=== PATIENT | female | born 2000 | race Two or more races ===

== ENCOUNTER 2020-07-14 12:14 | Outpatient (RCR) | payer OTHER, SELFPAY | END 2020-09-28 23:59 | disposition home or self-care (01) | LOC: ANHLAB 12:14 | PROVIDERS: Visit Provider Obstetrics & Gynecology | DX: O20.0 Threatened abortion (principal); Z3A.00 Weeks of gestation of pregnancy not specified | CPT/HCPCS: 36415; 84702 ==

== ENCOUNTER 2022-08-16 22:28 | Emergency (ER) | payer OTHER, SELFPAY ==
[2022-08-16 22:28] VITALS: BP 107/67; PULSE 102; RESP 17; TEMP 36.5; O2SAT 99
[2022-08-16 22:43] VITALS: O2SAT 100
--- NOTE | 2022-08-16 22:57 | ECG_ITS ---
Measurements Intervals [place] Rate: 92 P: 45 SD: 170 QRS: 30 QRSD: 86 T: 46 QT: 343 QTc: 425 Interpretive Statements SINUS RHYTHM BASELINE ARTIFACT- V6 NORMAL ECG NO PREVIOUS ECG AVAILABLE FOR COMPARISON Electronically Signed On 08-17-2022 6:37:20 CDT by Talat Rankin D.O.
[2022-08-16 23:01] VITALS: BP 109/75; PULSE 109; RESP 27
--- NOTE | 2022-08-16 23:01 | ED.GENADULT ---
HPI - General Adult General Chief complaint: Seizure Stated complaint: Syncope Time Seen by Provider: 08/16/22 22:43 History of Present Illness HPI narrative: This is a 22-year-old presenting at 17 weeks gestation presenting after brief loss of consciousness. the patient was out watching fireworks with her boyfriend when she started to have some chest heaviness and shortness of breath. She then closed her eyes and briefly lost consciousness. Her boyfriend caught her and lowered her to the ground. When she was on the ground she regained consciousness without tongue biting urinary incontinence. She then quickly returned to her baseline and has no complaints at this time. She has been out in the sun throughout most of the day. She denies chest pain difficulty breathing abdominal pain vaginal discharge or irritation or bleeding or urinary symptoms. There was some concern that the patient may have had a seizure because she had seizures when she was 2 to approximately 5 years old. She has not had a seizure in many years. Related Data Allergies Allergy/AdvReac Type Severity Reaction Status Date / Time No Known Allergies Allergy Verified 08/16/22 22:44 Exam Narrative: APPEARANCE: No apparent distress. well-appearing Head: atraumatic. EYES: EOMI, NOSE: Atraumatic NECK: Trachea midline RESPIRATORY: No increased rate of breathing, clear to auscultation CARDIOVASCULAR: tachycardic, no peripheral edema ABDOMINAL: Non-distended, soft nontender no guarding or rebound MUSCULOSKELETAl: No obvious deformities NEURO: Alert. Cranial nerves 2-12 grossly intact. Sensation light touch, motor function cerebellar function intact for 4 extremities. Gait exam was normal. SKIN:: Warm, dry. Normal color PSYCHIATRIC: Normal affect Course Vital Signs Vital signs: Vital Signs Temperature 97.7 F 08/16/22 22:28 Pulse Rate 102 H 08/16/22 22:28 Respiratory Rate 17 08/16/22 22:28 Blood Pressure 107/67 08/16/22 22:28 Pulse Oximetry 99 08/16/22 22:28 Temperature 97.7 F 08/16/22 22:28 Pulse Rate 102 H 08/16/22 22:28 Respiratory Rate 17 08/16/22 22:28 Blood Pressure 107/67 08/16/22 22:28 Pulse Oximetry 100 08/16/22 22:43 Oxygen Delivery Room Air 08/16/22 22:43 Medical Decision Making [facility] Narrative Medical decision making narrative: -Presentation: 22-year-old female presenting with brief loss of consciousness and . patient does not have any OBGYN complaints at this time. -DDX includes but is not limited to: Syncope, seizure, dehydration -Co-morbidities complicating care: , remote history of seizures -Social determinants of health: unemployed, lives with her mother -External Chart Review: none -Hx from independent Sources: mother touch at bedside, boyfriend a thin a bedside -Independent interpretation of studies: Independent EKG interpretation: Rhythm [sinus], Rate [92], [place] -[normal], MD -[normal], QRS [narrow], QTC [normal], T waves -[negative for concerning inversions], ST Segments - [Negative for concerning elevations] Final interpretations: [Normal Sinus Rhythm] CBC showed a slight increase in white count. Metabolic panel showed hypokalemia which is repleted orally. Urine indicative of infection. Although she is asymptomatic she is so we will treat. -Discussion of Management/Consultants: none -Dx tests considered but not ordered: none -Procedures: none -Interventions: 2L normal saline 40 mEq potassium, Keflex 500 mg -Shared decision making / Disposition: patient's presentation is consistent with benign syncope. Patient will be discharged with OB followup care follow-up. -RX Keflex 500 mg b.i.d. x5 days Vital Signs Vital Signs: Vital Signs Temperature 97.7 F 08/16/22 22:28 Pulse Rate 102 H 08/16/22 22:28 Respiratory Rate 17 08/16/22 22:28 Blood Pressure 107/67 08/16/22 22:28 Pulse Oximetry 99 08/16/22 22:28
[2022-08-16 23:20] LABS: Basophils Percent Auto 0.2 % (0.2-1.2); Eosinophils Absolute Auto 0.1 K/mm3 (0-0.3); Eosinophils Percent Auto 0.8 % (0-4.4); Hematocrit 38.4 % (37.0-47.0); Hemoglobin 13.3 g/dL (12.0-15.0); Immature Granulocyte Absolute 0.02 K/mm3 (0.00-0.031); Immature Granulocyte Percent A 0.2 % (0-0.5); Lymphocytes Absolute Auto 1.99 K/mm3 (0.9-3.2); Lymphocytes Percent Auto 16.4 % (18.3-44.2); Mean Corpuscular HGB Conc 34.6 g/dl (32-36); Mean Corpuscular Hemoglobin 30.6 pg (26-34); Mean Corpuscular Volume 88.3 fl (80-100); Mean Platelet Volume 9.8 fl (7.4-10.4); Monocytes Absolute Auto 0.5 K/mm3 (0.1-0.6); Monocytes Percent Auto 4.4 % (2.6-8.5); Neutrophils Absolute Auto 9.5 K/mm3 (1.3-6.7); Platelet Count Result 210 k/mm3 (150-375); Red Blood Count 4.35 M/mm3 (4.2-5.4); Red Cell Distribution Width 12.7 % (11.5-14.5); White Blood Count 12.1 K/mm3 (4.5-10.0)
[2022-08-16] MEDS: SODIUM CHLORIDE 0.9% IV 2,000 ML 999 ML IV CONT (23:23)
[2022-08-16 23:29] LABS: Alanine Aminotransferase 25 U/L (6-35); Albumin Level 3.8 g/dL (3.5-5.1); Alkaline Phosphatase 34 U/L (38-126); Anion Gap 6 mmol/L (8-16); Aspartate Amino Transferase 20 U/L (14-36); Bilirubin,Total 0.3 mg/dL (0.2-1.3); Blood Urea Nitrogen 5 mg/dL (7-17); Carbon Dioxide 24 mmol/L (22-30); Chloride 104 mmol/L (98-107); Estimated CRCL calculation 146 ml/min; Estimated Glomerular Filt Rate > 60; Glucose 112 mg/dL (65-110); Potassium 3.2 mmol/L (3.4-5.0); Sodium 134 mmol/L (137-145)
[2022-08-16 23:36] LABS: Appearance Urine Clear (Clear); Bilirubin Urine Negative (Negative); Blood Urine Negative (Negative); Color Urine Yellow (Yellow); Glucose Urine UA Negative (Negative); Ketones Urine Negative (Negative); Leukocyte Esterase Ur Trace LEU/UL (Negative); Nitrate Urine Negative (Negative); Protein Urine 1+ mg/dL (Negative); Urobilinogen Urine 0.2 mg/dL (<2.0); pH Urine 6.5 (5.0-9.0)
[2022-08-16 23:39] LABS: Bacteria Urine None Seen /hpf; Non Pathogenic Casts 0-2; RBC Urine 0-2 /hpf (0-2); Squamous Epithelial Cell Urine Few /hpf (Few)
[2022-08-16 23:41] LABS: Add Urine Microscopic? YES
[2022-08-16] MEDS: POTASSIUM CHLORIDE 20 MEQ PACKET (FOR LIQUID) 40 MEQ PO (23:58)
[2022-08-16] MEDS: CEPHALEXIN 500 MG CAPSULE PO (23:59)
[2022-08-17 00:35] VITALS: BP 109/75; PULSE 108; RESP 26; O2SAT 100
== END 2022-08-17 00:37 | disposition home or self-care (01) ==
PROVIDERS: Emergency Provider Emergency Medicine
DX: O26.892 Other specified pregnancy related conditions, second trimester (principal); R55 Syncope and collapse; Z3A.17 17 weeks gestation of pregnancy
CPT/HCPCS: 36415; 80053; 81001; 85025; 87086; 87088; 93005; 96360; 99283; A9270; J7030

== ENCOUNTER 2023-01-16 07:12 | Inpatient (IN) | payer OTHER, SELFPAY ==
[2023-01-16] VITALS (11 sets, daily range): BP systolic 123–172; BP diastolic 82–111; PULSE 71–93; RESP 16; TEMP 36.6–36.8; O2SAT 100; BMI 32.0
--- NOTE | 2023-01-16 07:48 | LDADM ---
This patient, Shira Neumann, was admitted to Labor/Delivery/Recovery 105 on 01/16/23 at 07:12. Plans for labor, pain management and were discussed with patient. Patient/family oriented to hospital policies and general routines including ID bracelet, bed and alarms, visiting hours, pain management, procedures, bathroom and other care routines, personal items, smoking policy, room service/diet and guest tray routines, security routines, and visiting hours. Patient/Family are encouraged to report perceived risks to care and to ask questions if they do not understand what they are told or what they should do. See OBIX for further documentation.
[2023-01-16 08:16] LABS: Basophils Absolute Auto 0.1 K/mm3 (0.0-0.1); Basophils Percent Auto 0.5 % (0.2-1.2); Eosinophils Absolute Auto 0.1 K/mm3 (0-0.3); Eosinophils Percent Auto 0.7 % (0-4.4); Hematocrit 37.4 % (37.0-47.0); Immature Granulocyte Absolute 0.04 K/mm3 (0.00-0.031); Immature Granulocyte Percent A 0.3 % (0-0.5); Lymphocytes Absolute Auto 3.08 K/mm3 (0.9-3.2); Lymphocytes Percent Auto 25.1 % (18.3-44.2); Mean Corpuscular HGB Conc 32.1 g/dl (32-36); Mean Corpuscular Hemoglobin 28.5 pg (26-34); Mean Corpuscular Volume 88.8 fl (80-100); Mean Platelet Volume 11.2 fl (7.4-10.4); Monocytes Absolute Auto 0.7 K/mm3 (0.1-0.6); Monocytes Percent Auto 5.3 % (2.6-8.5); Neutrophils Absolute Auto 8.4 K/mm3 (1.3-6.7); Neutrophils Percent Auto 68.1 % (45.5-73.1); Platelet Count Result 224 k/mm3 (150-375); Red Blood Count 4.21 M/mm3 (4.2-5.4); Red Cell Distribution Width 15.1 % (11.5-14.5); White Blood Count 12.3 K/mm3 (4.5-10.0)
[2023-01-16 08:31] LABS: Alanine Aminotransferase 49 U/L (6-35); Albumin Level 3.8 g/dL (3.5-5.1); Alkaline Phosphatase 315 U/L (38-126); Anion Gap 9 mmol/L (8-16); Aspartate Amino Transferase 35 U/L (14-36); Bilirubin,Total 0.6 mg/dL (0.2-1.3); Blood Urea Nitrogen 5 mg/dL (7-17); Calcium 8.7 mg/dL (8.4-10.2); Carbon Dioxide 24 mmol/L (22-30); Chloride 104 mmol/L (98-107); Estimated CRCL calculation 127 ml/min; Estimated Glomerular Filt Rate > 60; Glucose 102 mg/dL (65-110); Potassium 3.4 mmol/L (3.4-5.0); Sodium 137 mmol/L (137-145); Uric Acid 5.3 mg/dL (2.5-7.5)
--- NOTE | 2023-01-16 09:03 | P.PCNOB_ITS ---
OB - Vaginal Delivery Note Procedure Delivery date: 01/16/23 Events: No Care Intrapartal Events: Other (Delivery in the ambulance) Induction method: None Delivery monitor: None Route of delivery: Episiotomy description: None Laceration Description: None Specimen: Yes Quantitative Blood Loss (ml): 150 Disposition: Floor Complications: No immediate complications Narrative: patient delivered in the ambulance, placenta was in the vagina, placenta was delivered in the hospital room. [place] Baby Weeks of gestation at delivery: 38
[2023-01-16 09:12] LABS: HIV 1/2 Ab P24 Ag Result Negative (Negative)
[2023-01-16 10:07] LABS: Barbiturate Screen Urine Negative (Negative); Benzodiazepines Screen Urine Negative (Negative)
[2023-01-16 10:11] LABS: Cannabinoid Screen Urine Negative (Negative); Cocaine Screen Urine Negative (Negative); Methadone Screen Urine Negative (Negative); Opiate Screen Urine Negative (Negative); Phencyclidine Screen Urine Negative (Negative)
[2023-01-16] MEDS: IBUPROFEN 600 MG TABLET PO ×2 (10:13→16:28)
--- NOTE | 2023-01-16 10:21 | PC.NURSE ---
Patient transferred to post room #279 via wheelchair. Support person present. Oriented to unit, room, information board, rooming in, admission packet and security measures. Patient verbalizes understanding.
[2023-01-16 12:55] LABS: Amphetamine Screen Urine Positive (Negative)
--- NOTE | 2023-01-16 14:00 | PC.NURSE ---
Pitocin IV fluids completed at 1400 (500 mls), pt's IV saline lock removed.
--- NOTE | 2023-01-16 15:03 | PCCCNOTE ---
Addendum entered by JONATHAN Sinclair 01/16/23 16:19: An investigation to be initiated by [facility]. An exhaust worker will be present to meet with pt. within 24 hours. Original Note: Referred for positive amphetamine result on urine drug screen for pt. and baby girl. Met with pt. and significant other/father of baby, Yovani Moulton at bedside. Pt. confirms marijuana use but denies any other drugs or alcohol during . She obtains marijuana socially. She denies use of any medications that could cause a false positive. She had limited care as states having lost her apartment in September and moved in with her mother; she states having transportation issues because of this. She states having [facility] case in the past which has been closed. She lives with her mother, her siblings and her 6 year old daughter. She planned to return home with family at discharge with baby girl. She states having all items to care for baby girl at home. She states significant other, his mother and her mother are all supportive. I've provided resources as well as all social determinants of health resources indicated. She accepted same. Encouraged she contact any/all of interest. I've reported all above to [facility]. Intake #[id number]. RN aware of above. Following.
[2023-01-16 16:17] LABS: Rapid Plasma Reagin Non-Reactive (NonReactive)
--- NOTE | 2023-01-16 17:00 | PC.NURSE ---
[address] [facility] Sr. Media Manager, Britney Allred, here to see patient and father of baby. Her phone number is #[phone], per DCFS, baby will not go home with the mother and she needs to be called when we know the day of discharge for the baby, she is working on finding placement. A copy of her ID was placed on the pt's and baby's chart. *Copy of this note placed in baby's chart.
[2023-01-17] MEDS: IBUPROFEN 600 MG TABLET PO ×3 (00:30→20:34)
[2023-01-17 04:59] LABS: Hematocrit 34.9 % (37.0-47.0); Hemoglobin 11.3 g/dL (12.0-15.0)
[2023-01-17 05:00] VITALS: BP 126/93; PULSE 89; RESP 16; TEMP 36.5; O2SAT 100
--- NOTE | 2023-01-17 07:29 | P.PNOB_ITS ---
OB - PN: Subj Subjective Date/time seen: 01/17/23 07:29 Patient comments: no complaints, pain well controlled, incisional pain, tolerating diet and flatus present OB - PN: Obj Data Labs 01/17/23 04:09 01/16/23 08:03 Labs: Laboratory Results - last 24 hr 01/16/23 01/16/23 01/17/23 08:03 09:24 04:09 WBC 12.3 H RBC 4.21 Hgb 12.0 11.3 L Hct 37.4 34.9 L MCV 88.8 MCH 28.5 MCHC 32.1 RDW 15.1 H Plt Count 224 MPV 11.2 H Immature Gran % (Auto) 0.3 Neut % (Auto) 68.1 Lymph % (Auto) 25.1 [place] % (Auto) 5.3 Eos % (Auto) 0.7 Baso % (Auto) 0.5 Lymph # (Auto) 3.08 [place] # (Auto) 0.7 H Eos # (Auto) 0.1 Baso # (Auto) 0.1 Abs Immat Gran (auto) 0.04 H Absolute Neuts (auto) 8.4 H Absolute Nucleated RBC 0.0 Nucleated RBC % 0.0 Sodium 137 Potassium 3.4 Chloride 104 Carbon Dioxide 24 Anion Gap 9 BUN 5 L Creatinine 0.60 L Estim Creat Clear Calc 127 Estimated GFR > 60 Glucose 102 Uric Acid 5.3 Calcium 8.7 Total Bilirubin 0.6 AST 35 ALT 49 H Alkaline Phosphatase 315 H Total Protein 8.0 Albumin 3.8 Urine Opiates Screen Negative Urine Methadone Screen Negative Ur Barbiturates Screen Negative Ur Phencyclidine Scrn Negative Ur Amphetamine Screen Positive A U Benzodiazepines Scrn Negative Urine Cocaine Screen Negative U Cannabinoids Screen Negative RPR Non-reactive HIV 1&2 Ab/P24 Ag 4thGn Negative Blood Type A Positive Antibody Screen Negative OB - PN A/P Plan day: 1 Plan: routine care Comments: No problems, routine care Time Spent With Patient Time: Total time spent is greater than 50% in coordination of care (as documented) at patient's floor/unit and/or counseling patient: Exam Const: General: comfortable, no acute distress and alert Resp: Effort & Inspection: normal respiratory effort Auscultation: no product craftsman ckles, no rales and no rhonchi Cardio: Rate: regular rate Heart sounds: no click, no murmurs and no rubs GI: Inspection: non-distended GI Palp: No Tenderness to palpation present (GI) Auscultation: normal bowel sounds Other: Incision - CDI Extrem: General: normal to inspection, no pedal edema and no calf tenderness
[2023-01-17 07:48] VITALS: BP 127/77; PULSE 78; RESP 22; TEMP 36.7; O2SAT 98
--- NOTE | 2023-01-17 14:24 | PCCCNOTE ---
DCFS present at hospital 01/16/23 and plan to take custody of baby girl per nursing note. Spoke with RNCheryle this morning and she is also aware. She states possible discharge or Monday pending any withdrawl symptoms. Spoke to DCFS workerPaula at [phone] to notify of anticipated discharge date and she confirms working on placement for baby girl. Following.
[2023-01-17 20:30] VITALS: BP 132/80; PULSE 80; RESP 20; TEMP 37
[2023-01-17] MEDS: ACETAMINOPHEN 325 MG TABLET 650 MG PO (20:32)
--- NOTE | 2023-01-17 23:20 | PC.NURSE ---
Patient sent infant to the nursery so that she could sleep. Inside the infants crib drawer was a urine collection cup with pills inside. There was also a vape device left on the infants crib. final inspection supervisor called and she instructed us to call security. The ict security specialist came to the floor and confiscated the vape and the cup of pills. The infant's framing specialist was notified and he has instructed us that is not to be in the patient's room unsupervised. DCFS and Care Coordination are already involved. The infant was taken to the first floor nursery for the night. The patient and her significant other came to the patient kitchen for snacks and did not ask about the . final inspection supervisor instructed us to have security come speak to them with the nurse when they ask to have baby back.
--- NOTE | 2023-01-18 07:47 | PM.OBPNVD ---
OB - PN: Subj Subjective Date/time seen: 01/18/23 07:47 Interval history: PP Day 2 delivery outside of hospital drugs found in baby's crib overnight by RN patient denies complaints OB - PN: Obj Data Labs 01/17/23 04:09 01/16/23 08:03 OB - PN A/P Plan day: 2 Plan: discharge home Comments: Patient was made aware of drugs found in baby's crib patient upset, clinical case manager notified Time Spent With Patient Time: Total time spent is greater than 50% in coordination of care (as documented) at patient's floor/unit and/or counseling patient: Review of Systems Review of Systems: All systems reviewed & are unremarkable except as noted in HPI and below Exam Const: General: healthy appearing, in distress and anxious Resp: Effort & Inspection: normal respiratory effort Cardio: Rate: regular rate GI: Other: soft Skin: General skin exam: normal color Neuro: General: patient oriented x3
--- NOTE | 2023-01-18 07:52 | P.DS_ITS ---
DS: Admitting Diagnosis Discharge Date 01/18/23 Admitting Diagnosis vaginal delivery out of hospital DS: Discharge Diagnosis Discharge Diagnosis (1) Encounter for care after unplanned out of hospital delivery: Code(s): Z39.2 - Encounter for routine follow-up Status: Acute OB - DS: Summary OB Procedures : Other (no care) OB Procedures Intrapartum: Spontaneous Vag Delivery OB Procedures: : None Peripartum Data Laceration Description: None Episiotomy description: None Time Spent with Patient Time attestation: Total time spent providing and/or coordinating discharge services: DS: Data Data Completed and Pending Pending studies at discharge: Pending at discharge 01/16/23 07:28 Surgical [PTH] Routine Discharge Plan Discharge Attending physician on discharge: Manjinder Sanchez Consulting providers: Tania Renteria Discharging Clinician: Tania Renteria Patient Disposition: Home, Self-Care Activity: as tolerated and pelvic rest Diet: regular Discharge Instructions: Education: Mom and Baby Guide Given to: Mother Follow-Up: Call your delivering provider's office for an appointment to be seen in: 4 Weeks BREAST CARE: * Wear a snug supportive bra. * For engorgement discomfort: Bottle Feeding: * May apply ice packs EPISIOTOMY/PERINEAL CARE: * Until bleeding stops, use your douglas bottle after urinating * Change your pad frequently throughout the day * You may take sitz baths several times a day (fill your bathtub with warm water and soak for 20 minutes.) Do NOT bathe in the water * No tub baths until seen by your physician - You may shower ACTIVITY: * Rest as much as possible. * Do not exercise or lift anything heavier than your baby (such as laundry or other children.) * Avoid stairs or driving as much as possible. * Do not put anything into the vagina. No douching, tampons, or sexual activity until seen by physician. NOTIFY PHYSICIAN IF YOU HAVE ANY QUESTIONS OR IF ANY OF THE FOLLOWING SYMPTOMS OCCUR: * If your vaginal bleeding becomes foul smelling. * If your vaginal bleeding becomes more heavy than a period or if your bleeding changes from pink to bright red. However, you may pass an occasional walnut- sized clot once or twice for the first week . * If you experience a sharp, shooting pain in you calves. DIET: * Eat regular, well-balanced meals. * Drink plenty of fluids daily. Stand Alone Forms: General Discharge Information Follow-up/Referrals: Manjinder Sanchez MD [Physician] - 4 Weeks Discharge Medications: Continued prenat.vits,amirah,[id number] Tablet PO DAILY Date of admission: 01/16/23 07:12 Primary Care Provider: UNKNOWN,DOCTOR Admitting Provider: Manjinder Sanchez Attending physician on admission: Manjinder Sanchez Condition: Stable
[2023-01-18] MEDS: ACETAMINOPHEN 325 MG TABLET 650 MG PO (08:04)
[2023-01-18] MEDS: IBUPROFEN 600 MG TABLET PO (08:05)
[2023-01-18 08:29] VITALS: BP 92/80; PULSE 98; RESP 18; TEMP 36.7; O2SAT 100
--- NOTE | 2023-01-18 08:44 | PC.NURSE ---
Addendum entered by Sandee Suárez RN 01/18/23 08:50: *Copy of this note placed in baby's chart. Original Note: 0750-Tania Renteria CNM, here to discharge mother. GRIS went to room to explain to mother why she is not allowed to have her baby in room at this time. Security and Legal Services Professional present outside of door. Mother states she did not know that her baby would not be going home with her. Legal Services Professional notified Care Coordination of situation and they will contact DCFS this AM for clarification to mother and pending placement of .
--- NOTE | 2023-01-18 13:10 | PC.NURSE ---
Patients mother called in regarding her daughter. States pt has gone to get car seat and is back to take baby home and her mother is asking why baby is not being discharged. Advised that we are unable to give patient information via phone, however baby is still an inpatient and has not been discharged by offset printer. Pt mom states she will be the one responsible for baby, per DCFS after discharge. Advised her to check with DCFS regarding discharge procedures planned for baby.
--- NOTE | 2023-01-18 14:53 | PC.NURSE ---
1055-DCFS fbi investigator, Britney Allred, here to see pt. duralumin metalworker asked RN about meds found in baby's crib (what kind of med and when meds would be tested). RN called housekeeper/custodian/laundry worker to inquire and was told this would be a legal issue and housekeeper/custodian/laundry worker would find out and get back to RN. duralumin metalworker was in patient's room for about 15 and then proceeded to desk with patient following behind and instructed RN she (pointing to pt.) can take her baby home . RN was unable to inquire as to her change of plans since pt was right there with case manager. RN asked case manager if she would be contacting Care Coordination and she stated yes I can do that . RN informed 1st floor nursery, Care Coordination and Hot Bread Baker. Care Coordination later contacted case manager and found out that the plan was for pt and baby to be discharged home with patient's mother (placement for baby). This was NOT handled in a professional manner by case manager to RN and the plan for baby to be discharged to patient's mother was NOT relayed to RN. Patient was then discharged and left the premises with Security. Patient informed RN that she was going to buy car seat and would return for her baby. Copy of this note will be placed in baby's chart.
== END 2023-01-18 11:50 | disposition home or self-care (01) | DRG 560 ==
LOC: ANHLDR 07:28 → ANHOB2 10:23
PROVIDERS: Admitting Provider Obstetrics & Gynecology; Visit Provider Obstetrics & Gynecology
DX: O62.3 Precipitate labor (principal); Z37.0 Single live birth; Z3A.38 38 weeks gestation of pregnancy
CPT/HCPCS: 36415; 80053; 80307; 84550; 85014; 85018; 85025; 86592; 86703; 86850; 86900; 86901; 88307; A9270; G0432

== ENCOUNTER 2024-01-22 09:16 | Observation (INO) | payer OTHER, SELFPAY ==
--- NOTE | ~2024-01-22 | US_ITS ---
ULTRASOUND (Duplex and color flow interrogation techniques used for this exam.) Ordering provider: David De Leon MD History: . growth, plac check, john, limited care . Comparison: Findings: Number of fetuses: 1 BIOMETRY: BPD: 8.2 cm (33 weeks 0 days) HC: 30.2 cm (33 weeks 3 days) AC: 29.7 cm (33 weeks 4 days) FL: 6.4 cm (33 weeks 1 days) CI: 76.4. FL/BPD: 78.3. HC/AC: 1.02. FL/AC: 21.68. FL/HC: 21.3. Parametric ratios: Today's average US gestational age: 33 weeks 2 days Today's EDC: March 09, 2024 Estimated weight: 2193 gm. Presentation: Vertex. Placental location: Fundal. Previa: None Amniotic fluid index: 19.3 cm. Largest pocket measures 6.4 cm. 5th percentile is 8.6 cm. 95th percent ile is 24.2 cm. Heart rate: 137 bpm IMPRESSION: Single live fetus of cephalic presentation. Reviewed, dictated and finalized at location A. AURANT RECRUITER
[2024-01-22 10:30] VITALS: BP 120/72; PULSE 117
[2024-01-22 11:23] LABS: Basophils Percent Auto 0.3 % (0.2-1.2); Eosinophils Absolute Auto 0.1 K/mm3 (0-0.3); Eosinophils Percent Auto 0.6 % (0-4.4); Hematocrit 32.4 % (37.0-47.0); Hemoglobin 10.4 g/dL (12.0-15.0); Immature Granulocyte Absolute 0.15 K/mm3 (0.00-0.031); Immature Granulocyte Percent A 1.1 % (0-0.5); Lymphocytes Percent Auto 10.4 % (18.3-44.2); Mean Corpuscular HGB Conc 32.1 g/dl (32-36); Mean Corpuscular Volume 87.3 fl (80-100); Mean Platelet Volume 11.1 fl (7.4-10.4); Monocytes Absolute Auto 0.8 K/mm3 (0.1-0.6); Monocytes Percent Auto 5.6 % (2.6-8.5); Platelet Count Result 163 k/mm3 (150-375); Red Blood Count 3.71 M/mm3 (4.2-5.4); Red Cell Distribution Width 13.5 % (11.5-14.5); White Blood Count 13.5 K/mm3 (4.5-10.0)
[2024-01-22 11:38] LABS: Amphetamine Screen Urine Negative (Negative); Barbiturate Screen Urine Negative (Negative); Benzodiazepines Screen Urine Negative (Negative); Cannabinoid Screen Urine Positive (Negative); Cocaine Screen Urine Negative (Negative); Methadone Screen Urine Negative (Negative); Opiate Screen Urine Negative (Negative); Phencyclidine Screen Urine Negative (Negative)
[2024-01-22 12:06] LABS: HIV 1/2 Ab P24 Ag Result Negative (Negative)
[2024-01-22 12:16] LABS: Hepatitis B Surface Antigen Negative (Negative); Rubella IgG Antibody 20.3 IU/ML
[2024-01-22 12:45] LABS: Rapid Plasma Reagin Non-Reactive (NonReactive)
--- NOTE | 2024-01-22 13:59 | OBADM ---
This patient, Shira Neumann, admitted to the OB room Labor/Delivery/Recovery 103 for observation. Patient/family oriented to hospital policies and general routines including ID bracelet, bed and alarms, visiting hours, pain management, procedures, bathroom and other care routines, personal items, smoking policy, room service/diet, and visiting hours. Patient/Family are encouraged to report perceived risks to care and to ask questions if they do not understand what they are told or what they should do.
--- NOTE | 2024-01-23 12:26 | PM.OBTRLD ---
OB - Triage/Final Diagnosis Visit Information Comments/Additional reasons for admission: I have assessed the risk for this patient, Shira Neumann, and determined that she would benefit from observation care. Evaluation Laboratory results: Laboratory Tests 01/22/24 01/22/24 10:37 10:40 WBC 13.5 H RBC 3.71 L Hgb 10.4 L Hct 32.4 L MCV 87.3 MCH 28.0 MCHC 32.1 RDW 13.5 Plt Count 163 MPV 11.1 H Immature Gran % (Auto) 1.1 H Neut % (Auto) 82.0 H Lymph % (Auto) 10.4 L [place] % (Auto) 5.6 Eos % (Auto) 0.6 Baso % (Auto) 0.3 Lymph # (Auto) 1.40 [place] # (Auto) 0.8 H Eos # (Auto) 0.1 Baso # (Auto) 0.0 Abs Immat Gran (auto) 0.15 H Absolute Neuts (auto) 11.0 H Absolute Nucleated RBC 0.000 Nucleated RBC % 0.0 Urine Opiates Screen Negative Urine Methadone Screen Negative Ur Barbiturates Screen Negative Ur Phencyclidine Scrn Negative Ur Amphetamine Screen Negative U Benzodiazepines Scrn Negative Urine Cocaine Screen Negative U Cannabinoids Screen Positive A RPR Non-reactive Hep Bs Antigen Negative HIV 1&2 Ab/P24 Ag 4thGn Negative Rubella IgG Antibody 20.3 Blood Type A Positive Antibody Screen Negative Final Diagnosis (1) False labor: Code(s): O47.9 - False labor, unspecified Status: Acute
== END 2024-01-22 12:30 | disposition home or self-care (01) ==
PROVIDERS: Admitting Provider Obstetrics & Gynecology; Visit Provider Obstetrics & Gynecology
DX: O47.03 False labor before 37 completed weeks of gestation, third trimester (principal); Z3A.32 32 weeks gestation of pregnancy; Z11.4 Encounter for screening for human immunodeficiency virus [HIV]
CPT/HCPCS: 36415; 76816; 80307; 85025; 86592; 86703; 86762; 86850; 86900; 86901; 87340; G0378; G0379; G0432

== ENCOUNTER 2024-02-17 01:03 | Observation (INO) | payer OTHER, SELFPAY ==
[2024-02-17] VITALS (9 sets, daily range): BP systolic 107–155; BP diastolic 56–90; PULSE 100–116; BMI 35.6
--- NOTE | 2024-02-17 01:49 | PC.NURSE ---
Call placed to Dr. De Leon pt c/o leaking and occ. ctx, ROM Plus negative SVE 3.5-/-2. Order for UDS.
[2024-02-17 01:55] LABS: Add Urine Microscopic? YES; Appearance Urine Clear (Clear); Bacteria Urine None Seen /hpf; Bilirubin Urine Negative (Negative); Blood Urine Non-Hemolyzed Trace (Negative); Color Urine Yellow (Yellow); Glucose Urine UA Negative (Negative); Ketones Urine Negative (Negative); Leukocyte Esterase Ur 1+ LEU/UL (Negative); Nitrate Urine Negative (Negative); Non Pathogenic Casts 0-2; Protein Urine Trace mg/dL (Negative); Specific Grav Ur 1.019 (1.001-1.035); Squamous Epithelial Cell Urine Occasional /hpf (Few)
--- NOTE | 2024-02-17 02:13 | OBADM ---
This patient, Shira Neumann, admitted to the OB room Labor/Delivery/Recovery 104 for observation. Patient/family oriented to hospital policies and general routines including ID bracelet, bed and alarms, visiting hours, pain management, procedures, bathroom and other care routines, personal items, smoking policy, room service/diet, and visiting hours. Patient/Family are encouraged to report perceived risks to care and to ask questions if they do not understand what they are told or what they should do.
[2024-02-17 02:54] LABS: Amphetamine Screen Urine Negative (Negative); Barbiturate Screen Urine Negative (Negative); Benzodiazepines Screen Urine Negative (Negative); Cannabinoid Screen Urine Positive (Negative); Cocaine Screen Urine Negative (Negative); Methadone Screen Urine Negative (Negative); Opiate Screen Urine Negative (Negative); Phencyclidine Screen Urine Negative (Negative)
--- NOTE | 2024-02-17 03:05 | PM.OBPRVD ---
OB - Vaginal Delivery Note Procedure Delivery date: 02/17/24 Events: Gestational Diabetes Intrapartal Events: Other (Shoulder dystocia) Induction method: Per Pitocin Protocol Delivery augmentation: Rupture of Membranes Delivery monitor: External FHT, External Uterine and Internal Uterine Route of delivery: Episiotomy description: None Laceration Description: Periurethral (left) and Perineal - 2nd Degree Delivery repair: vicryl (3-0) Specimen: Yes (cord blood, placenta) Quantitative Blood Loss (ml): 450 Anesthesia type: Epidural Disposition: PACU Complications: None Narrative: 23 y/o G1 at 40 6/7 weeks gestation who presented to the hospital for induction of labor. Oxytocin was administered intravenously. Amniotomy was performed with return of clear fluid. Accuchecks were normal throughout labor. She received an epidural for pain control. Her labor progressed and her cervix dilated completely. She pushed with good effort and delivered the 's head to the perineum. A shoulder dystocia was encountered. Fundal pressure and traction on the head were strictly avoided. McRobert's maneuver was employed, followed by clockwise rotation of the posterior shoulder. Delivery of the anterior shoulder was easily effected and the body delivered. The nose and mouth were bulb suctioned. After a delay, the cord was clamped and cut. The was handed off the field. Cord blood was collected. The placenta delivered spontaneously and was grossly normal in appearance. The usual 3 vessel cord was noted. A left-sided periurethral laceration was reapproximated with a single figure of eight suture of 3-0 Vicryl. A second degree midline perineal laceration was sustained. This was reapproximated using 3-0 Vicryl in the usual layered fashion. Excellent hemostasis resulted as did excellent reapproximation of the normal anatomy. Needle and instrument counts were correct. The patient was taken to recovery room in stable condition. The infant went to the nursery in stable condition. I was present and scrubbed for the entire delivery. [place] Baby Date of : 02/17/24 Time of : 02:36 Gestational Age by Date: 40 Infant gender: Female presentation: vertex position: Left Occiput Anterior Placenta delivery description: Spontaneous and Normal Configuration Cord Vessel Description: 3 Vessels and Delayed Cord Clamping
--- NOTE | 2024-02-17 03:11 | PM.OBDSVD ---
DS: Admitting Diagnosis Admitting Diagnosis IUP at 40 6/7 weeks A2DM DS: Discharge Diagnosis Discharge Diagnosis (1) (normal spontaneous vaginal delivery): Code(s): O80 - Encounter for full-term uncomplicated delivery Status: Acute (2) Gestational diabetes mellitus (GDM) affecting first : Code(s): O24.419 - Gestational diabetes mellitus in , unspecified control Status: Acute OB - DS: Summary OB Procedures : None OB Procedures Intrapartum: Spontaneous Vag Delivery OB Procedures: : None Peripartum Data Laceration Description: Periurethral (left) and Perineal - 2nd Degree Episiotomy description: None Time Spent with Patient Time attestation: Total time spent providing and/or coordinating discharge services: DS: Data Data Completed and Pending Labs on day of discharge: Labs from last 24 hours 02/17/24 01:31 Urine Color Yellow Urine Appearance Clear Urine pH 7.0 Ur Specific [place] 1.019 Urine Protein Trace Urine Glucose (UA) Negative Urine Ketones Negative Ur Blood (Man) Non-hemolyzed trace H Urine Nitrate Negative Urine Bilirubin Negative Urine Urobilinogen 1.0 Leukocyte Esterase Rfl 1+ H Urine RBC 3-5 H Urine WBC 6-10 H Ur Squamous Epith Cells Occasional Urine Bacteria None seen Urine Casts 0-2 Urine Opiates Screen Negative Urine Methadone Screen Negative Ur Barbiturates Screen Negative Ur Phencyclidine Scrn Negative Ur Amphetamine Screen Negative U Benzodiazepines Scrn Negative Urine Cocaine Screen Negative U Cannabinoids Screen Positive A Discharge Plan Discharge Attending physician on discharge: Jose Ontiveros Discharging Clinician: Jose Ontiveros Patient Disposition: Home, Self-Care Activity: pelvic rest Diet: regular Discharge Instructions: Call or return if temperature above 100.4? F, increased abdominal pain, increased vaginal bleeding or any new problems. Patient Language: Citizen Of [place] Stand Alone Forms: General Discharge Information Follow-up/Referrals: Jose Ontiveros MD [Physician] - 6 Weeks Discharge Medications: New ibuprofen 600 mg tablet 600 mg PO Q6H PRN (Reason: cramps) Qty: 30 0RF Continued prenat.vits,amirah,pwl-zsdy-uwlwe Tablet PO DAILY Date of admission: 02/17/24 01:03 Primary Care Provider: UNKNOWN,DOCTOR Admitting Provider: David De Leon Attending physician on admission: David De Leon Condition: Stable
--- NOTE | 2024-02-17 03:19 | PC.NURSE ---
Dr. De Leon in house.Discussed pt FHR, CTX, SVE, vitals, UDS and UA. Order to discharge pt home undelivered.
--- NOTE | 2024-02-17 03:20 | PC.NURSE ---
Pt stated that she does not have a ride. Call placed to dye house hand. building maintenance supervisor to call back.
--- NOTE | 2024-02-17 03:26 | PM.OBTRLD ---
OB - Triage/Final Diagnosis Visit Information Comments/Additional reasons for admission: I have assessed the risk for this patient, Shira Neumann, and determined that she would benefit from observation care. Evaluation Laboratory results: Laboratory Tests 02/17/24 01:31 Urine Color Yellow Urine Appearance Clear Urine pH 7.0 Ur Specific [place] 1.019 Urine Protein Trace Urine Glucose (UA) Negative Urine Ketones Negative Ur Blood (Man) Non-hemolyzed trace H Urine Nitrate Negative Urine Bilirubin Negative Urine Urobilinogen 1.0 Leukocyte Esterase Rfl 1+ H Urine RBC 3-5 H Urine WBC 6-10 H Ur Squamous Epith Cells Occasional Urine Bacteria None seen Urine Casts 0-2 Urine Opiates Screen Negative Urine Methadone Screen Negative Ur Barbiturates Screen Negative Ur Phencyclidine Scrn Negative Ur Amphetamine Screen Negative U Benzodiazepines Scrn Negative Urine Cocaine Screen Negative U Cannabinoids Screen Positive A Vital signs: Vital Signs - 24 hr 02/17/24 01:20 02/17/24 01:30 02/17/24 01:45 Pulse Rate 110 H 110 H 116 H Blood Pressure 155/89 H 144/78 H 146/90 H 02/17/24 02:01 02/17/24 02:15 02/17/24 02:30 Pulse Rate 101 H 105 H 111 H Blood Pressure 113/68 107/58 L 120/65 02/17/24 02:45 02/17/24 03:00 02/17/24 03:15 Pulse Rate 102 H 103 H 100 Blood Pressure 115/64 118/56 L 130/86 Final Diagnosis (1) False labor: Code(s): O47.9 - False labor, unspecified Status: Acute
--- NOTE | 2024-02-17 03:45 | PC.NURSE ---
Pt discharged home undelivered in stable condition per order from Dr. De Leon. Discharge orders reviewed with pt. Pt stated understanding. All questions and concerns answered. Pt provided with lena ramirez.
== END 2024-02-17 03:46 | disposition home or self-care (01) ==
PROVIDERS: Admitting Provider Obstetrics & Gynecology; Visit Provider Obstetrics & Gynecology
DX: O47.1 False labor at or after 37 completed weeks of gestation (principal); Z3A.38 38 weeks gestation of pregnancy
CPT/HCPCS: 80307; 81001; 87086; G0378; G0379

== ENCOUNTER 2024-02-21 02:30 | Inpatient (IN) | payer OTHER, SELFPAY ==
[2024-02-21] VITALS (116 sets, daily range): BP systolic 78–225; BP diastolic 39–195; PULSE 94–134; RESP 16–18; TEMP 36.4–37.2; O2SAT 93–100; BMI 35.7
--- NOTE | 2024-02-21 04:10 | LDADM ---
This patient, Shira Neumann, was admitted to Labor/Delivery/Recovery 104 on 02/21/24 at 02:30. Plans for labor, pain management and were discussed with patient. Patient/family oriented to hospital policies and general routines including ID bracelet, bed and alarms, visiting hours, pain management, procedures, bathroom and other care routines, personal items, smoking policy, room service/diet and guest tray routines, security routines, and visiting hours. Patient/Family are encouraged to report perceived risks to care and to ask questions if they do not understand what they are told or what they should do. See OBIX for further documentation.
[2024-02-21] MEDS: LACTATED RINGERS 1,000 ML 125 ML IV CONT ×2 (04:15→05:15)
[2024-02-21 04:23] LABS: Basophils Percent Auto 0.3 % (0.2-1.2); Eosinophils Absolute Auto 0.2 K/mm3 (0-0.3); Eosinophils Percent Auto 1.6 % (0-4.4); Hematocrit 29.3 % (37.0-47.0); Hemoglobin 9.4 g/dL (12.0-15.0); Immature Granulocyte Absolute 0.15 K/mm3 (0.00-0.031); Lymphocytes Absolute Auto 3.47 K/mm3 (0.9-3.2); Lymphocytes Percent Auto 22.9 % (18.3-44.2); Mean Corpuscular HGB Conc 32.1 g/dl (32-36); Mean Corpuscular Hemoglobin 26.7 pg (26-34); Mean Corpuscular Volume 83.2 fl (80-100); Mean Platelet Volume 11.2 fl (7.4-10.4); Monocytes Absolute Auto 1.2 K/mm3 (0.1-0.6); Monocytes Percent Auto 7.6 % (2.6-8.5); Neutrophils Absolute Auto 10.1 K/mm3 (1.3-6.7); Neutrophils Percent Auto 66.6 % (45.5-73.1); Platelet Count Result 223 k/mm3 (150-375); Red Blood Count 3.52 M/mm3 (4.2-5.4); Red Cell Distribution Width 14.6 % (11.5-14.5); White Blood Count 15.1 K/mm3 (4.5-10.0)
[2024-02-21 04:46] LABS: Rapid Plasma Reagin Non-Reactive (NonReactive)
--- NOTE | 2024-02-21 05:12 | P.PNAN_ITS ---
Anes - Eval Pre Procedure Procedure: labor pain management Date/Time: 02/21/24 05:12 Surgeon: Haley Preop Diagnosis: pain during labor Pre Op Diagnosis: contractions Patient Data Age: 23 Gender: F Height: 1.6 m Weight: 91.5 kg Last Vital Signs Pulse 108 H 02/21/24 05:01 BP 103/82 02/21/24 05:01 Pulse Ox 100 02/21/24 05:11 O2 Del Method Room Air 02/21/24 04:09 Allergies Allergy/AdvReac Type Severity Reaction Status Date / Time No Known Allergies Allergy Verified 02/21/24 04:37 Home Medications ?Medication ?Instructions ?Recorded ?Confirmed ?Type prenat.vits,amirah,jii-uzzk-qsoes tablet PO DAILY 01/16/23 History Laboratory Tests 02/21/24 03:52 WBC 15.1 H K/mm3 (4.5-10.0) RBC 3.52 L M/mm3 (4.2-5.4) Hgb 9.4 L g/dL (12.0-15.0) Hct 29.3 L % (37.0-47.0) MCV 83.2 fl (80-100) MCH 26.7 pg (26-34) MCHC 32.1 g/dl (32-36) RDW 14.6 H % (11.5-14.5) Plt Count 223 k/mm3 (150-375) MPV 11.2 H fl (7.4-10.4) Immature Gran % (Auto) 1.0 H % (0-0.5) Neut % (Auto) 66.6 % (45.5-73.1) Lymph % (Auto) 22.9 % (18.3-44.2) [place] % (Auto) 7.6 % (2.6-8.5) Eos % (Auto) 1.6 % (0-4.4) Baso % (Auto) 0.3 % (0.2-1.2) Lymph # (Auto) 3.47 H K/mm3 (0.9-3.2) [place] # (Auto) 1.2 H K/mm3 (0.1-0.6) Eos # (Auto) 0.2 K/mm3 (0-0.3) Baso # (Auto) 0.0 K/mm3 (0.0-0.1) Abs Immat Gran (auto) 0.15 H K/mm3 (0.00-0.031) Absolute Neuts (auto) 10.1 H K/mm3 (1.3-6.7) Absolute Nucleated RBC 0.000 K/mm3 (0.0-0.012) Nucleated RBC % 0.0 % (0.0-0.2) RPR Non-reactive (NonReactive) Hep Bs Antigen Pending HIV 1&2 Ab/P24 Ag 4thGn Pending Rubella IgG Antibody Pending Blood Type A Positive Antibody Screen Pending Other studies: pt significant other is currently hospitalized at another facility in the ICU with poss TB. Patient hx anesthesia problems: none Family hx anesthesia problems: none Results Review: All pre-operative results and documents have been reviewed as part of the pre- operative evaluation. [facility] Social History Social History Smoking packs per day: 1 Smoking cigarettes per day: 20.0 Years smoked: 2 Smoking pack-years: 2.00 Smoking status: Current every day smoker Tobacco type: cigarettes Second hand tobacco smoke exposure: Yes Substance use: current Last use: 12/15/23 Do You Feel Safe in your Home?: Yes Lack of Transportation: YES Lack of Food: Never True Current Housing: I Have Housing Concerned About Future Housing: No Difficulty Paying Gas/Electric Bills: No Difficulty Paying for Meds: No Currently Unemployed: YES Education: Grade School Difficulty w/ Childcare or Family Care: No Spiritual care concerns: No Exam Day of Procedure 02/21/24 05:12
[2024-02-21 05:13] LABS: HIV 1/2 Ab P24 Ag Result Negative (Negative)
[2024-02-21 05:18] LABS: Rubella IgG Antibody 15.6 IU/ML
[2024-02-21 05:21] LABS: Hepatitis B Surface Antigen Negative (Negative)
--- NOTE | 2024-02-21 05:48 | P.HP_ITS ---
H&P: HPI History of Present Illness Date/Time: 02/21/24 05:48 Chief Complaint: Contractions Narrative: 23 y/o at 37 4/7 weeks based on ultrasound at [facility] at 33 weeks, unknown LMP. She had her only office visit last week with me. GBS was collected, but results are not back. She presented to [facility] with contractions. The ED physician there asked to transfer the patient here, and I accepted the transfer. Here she was found to be in active labor. History significant for cigarette smoking, positive THC four days ago, history of polysubstance abuse, gestational diabetes in a prior , and an ambulance delivery with her second delivery. She does not have custody of her other two children. Her boyfriend is in the ICU at [place] with pneumonia, being ruled out for TB. Shira has a chronic cough, but nothing new. She has no fever. She is currently comfortable with epidural. Review of Systems Review of Systems: All systems reviewed & are unremarkable except as noted in HPI and below PMFSH Past Medical History Medical History Smoker History of drug abuse Social History Social History Smoking packs per day: 1 Smoking cigarettes per day: 20.0 Years smoked: 2 Smoking pack-years: 2.00 Smoking status: Current every day smoker Tobacco type: cigarettes Second hand tobacco smoke exposure: Yes Substance use: current Last use: 12/15/23 Do You Feel Safe in your Home?: Yes Lack of Transportation: YES Lack of Food: Never True Current Housing: I Have Housing Concerned About Future Housing: No Difficulty Paying Gas/Electric Bills: No Difficulty Paying for Meds: No Currently Unemployed: YES Education: Grade School Difficulty w/ Childcare or Family Care: No Spiritual care concerns: No Meds Home Medications and Allergies Home Medications ?Medication ?Instructions ?Recorded ?Confirmed ?Type prenat.vits,amirah,kba-fmxx-atquz tablet PO DAILY 01/16/23 History Allergies Allergy/AdvReac Type Severity Reaction Status Date / Time No Known Allergies Allergy Verified 02/21/24 04:37 Vital Signs Vital Signs - 24 hr 02/21/24 03:36 02/21/24 03:41 02/21/24 03:43 Pulse Rate Blood Pressure Pulse Oximetry 99 99 98 Oxygen Delivery 02/21/24 03:46 02/21/24 03:48 02/21/24 03:53 Pulse Rate 114 H Blood Pressure 153/105 H Pulse Oximetry 99 100 Oxygen Delivery 02/21/24 03:58 02/21/24 04:03 02/21/24 04:03 Pulse Rate Blood Pressure Pulse Oximetry 99 99 99 Oxygen Delivery 02/21/24 04:08 02/21/24 04:09 02/21/24 04:13 Pulse Rate Blood Pressure Pulse Oximetry 99 99 Oxygen Delivery Room Air 02/21/24 04:18 02/21/24 04:23 02/21/24 04:25 Pulse Rate 113 H Blood Pressure 132/89 Pulse Oximetry 99 99 Oxygen Delivery 02/21/24 04:28 02/21/24 04:30 02/21/24 04:33 Pulse Rate 111 H Blood Pressure 140/73 Pulse Oximetry 99 99 Oxygen Delivery 02/21/24 04:38 02/21/24 04:43 02/21/24 04:45 Pulse Rate 122 H Blood Pressure 138/88 Pulse Oximetry 100 99 Oxygen Delivery 02/21/24 04:48 02/21/24 04:51 02/21/24 04:56 Pulse Rate Blood Pressure Pulse Oximetry 100 99 98 Oxygen Delivery 02/21/24 05:01 02/21/24 05:06 02/21/24 05:11 Pulse Rate 108 H Blood Pressure 103/82 Pulse Oximetry 100 100 100 Oxygen Delivery 02/21/24 05:15 02/21/24 05:16 02/21/24 05:21 Pulse Rate 107 H 103 H Blood Pressure 120/92 H 131/88 Pulse Oximetry 99 97 Oxygen Delivery 02/21/24 05:23 02/21/24 05:25 02/21/24 05:26 Pulse Rate 105 H 104 H Blood Pressure 126/70 128/80 Pulse Oximetry 97 Oxygen Delivery 02/21/24 05:28 02/21/24 05:29 02/21/24 05:32 Pulse Rate 103 H 105 H Blood Pressure 119/60 126/81 Pulse Oximetry 99 99 Oxygen Delivery 02/21/24 05:33 02/21/24 05:35 02/21/24 05:37 Pulse Rate 101 H 110 H Blood Pressure 125/71 118/65 Pulse Oximetry 99 Oxygen Delivery 02/21/24 05:38 02/21/24 05:40 02/21/24 05:41 Pulse Rate 101 H 108 H Blood Pressure 125/67 128/65 Pulse Oximetry 100 100 100 Oxygen Delivery 02/21/24 05:43 02/21/24 05:45 02/21/24 05:46 Pulse Rate 106 H 117 H Blood Pressure 128/69 143/75 H Pulse Oximetry 99 Oxygen Delivery Exam Const: Orientation/consciousness: patient oriented x3 Other: Well-developed, well-nourished female in no acute distress. Neck: Thyroid: thyroid normal Lymphatic: no lymphadenopathy noted (in neck, axilla or inguinal nodes) Resp: Effort & Inspection: normal respiratory effort Auscultation: clear to auscultation bilaterally Cardio: Rate: regular rate Rhythm: regular rhythm Heart sounds: S1 normal heart sound present and S2 normal heart sound present GI: Other: ABD: Soft, nontender, gravid. NST reactive. TOCO: irregular contractions. : General: Yes no CVA tenderness Other: Cervix 5-6/50/-2. Vertex. AROM with clear fluid. IUPC placed. Back/Spine/Pelvis: Back: no CVA tenderness Skin: General skin exam: normal color and no rashes or lesions noted Neuro: General: patient oriented x3 Extrem: Other: Extremities: nontender with no edema Psych: Mental Status: mental status grossly normal Affect: normal affect H&P: Results Labs Labs: Short CBC 02/21/24 Range/Units 03:52 WBC 15.1 H (4.5-10.0) K/mm3 Hgb 9.4 L (12.0-15.0) g/dL Hct 29.3 L (37.0-47.0) % Plt Count 223 (150-375) k/mm3 Assessment and Plan Assessment and plan (1) Term : Code(s): Z34.90 - Encounter for supervision of normal , unspecified, unspecified trimester Status: Acute Assessment and Plan: A: IUP likely at term with labor. P: Anticipate . (2) Active labor at term: Status: Acute (3) Poor patient attendance of care: Code(s): O09.30 - Supervision of with insufficient care, unspecified trimester Status: Acute (4) Smoking (tobacco) complicating , third trimester: Code(s): O99.333 - Smoking (tobacco) complicating , third trimester Status: Acute (5) Marijuana use during : Code(s): O99.320 - Drug use complicating , unspecified trimester; F12.90 - Cannabis use, unspecified, uncomplicated Status: Acute
[2024-02-21 06:32] LABS: Glucose Point of Care 108 mg/dl (65-105)
[2024-02-21] MEDS: OXYTOCIN 30 UNITS/NS 500 ML 30 UNITS/500 ML BAG 999 UNITS IV CONT (09:05)
--- NOTE | 2024-02-21 09:15 | PM.OBPRVD ---
OB - Vaginal Delivery Note Procedure Delivery date: 02/21/24 Events: Other (1) IUP at 37 4/7 weeks; 2) Poor care; 3) Tobacco and marijuana use; 4) Labor) Induction method: None Delivery augmentation: Rupture of Membranes Delivery monitor: External FHT, External Uterine and Internal Uterine Route of delivery: Episiotomy description: None Laceration Description: None Specimen: Yes (cord blood) Quantitative Blood Loss (ml): 160 Anesthesia type: Epidural Disposition: PACU Complications: None Narrative: 23 y/o at 37 4/7 weeks gestation who presented to the hospital with contractions. Labor was diagnosed. Amniotomy was performed with return of clear fluid. She received an epidural for pain control. Her labor progressed and her cervix dilated completely. She pushed with good effort and delivered the infant's head to the perineum, followed by the body. The nose and mouth were bulb suctioned. After a delay, the cord was clamped and cut. The infant was handed off the field. Cord blood was collected. The placenta delivered spontaneously and was grossly normal in appearance. The usual 3 vessel cord was noted. There were no lacerations. Excellent hemostasis resulted as did excellent reapproximation of the normal anatomy. Needle and instrument counts were correct. The patient was taken to recovery room in stable condition. The went to the nursery in stable condition. I was present and scrubbed for the entire delivery. Baby Date of : 02/21/24 Time of : 09:03 Gestational Age by Date: 37 gender: Male presentation: vertex position: Left Occiput Anterior Placenta delivery description: Spontaneous and Normal Configuration Cord Vessel Description: 3 Vessels and Delayed Cord Clamping
--- NOTE | 2024-02-21 09:17 | PM.OBDSVD ---
DS: Admitting Diagnosis Discharge Date 02/23/24 Admitting Diagnosis IUP at 37 4/7 weeks Labor Poor care Tobacco use Marijuana use DS: Discharge Diagnosis Discharge Diagnosis (1) (normal spontaneous vaginal delivery): Code(s): O80 - Encounter for full-term uncomplicated delivery Status: Acute OB - DS: Summary OB Procedures : None OB Procedures Intrapartum: Spontaneous Vag Delivery OB Procedures: : None Peripartum Data Laceration Description: None Episiotomy description: None Time Spent with Patient Time attestation: Total time spent providing and/or coordinating discharge services: DS: Data Data Completed and Pending Labs on day of discharge: Labs from last 24 hours 02/21/24 02/21/24 06:01 03:52 WBC 15.1 H RBC 3.52 L Hgb 9.4 L Hct 29.3 L MCV 83.2 MCH 26.7 MCHC 32.1 RDW 14.6 H Plt Count 223 MPV 11.2 H Immature Gran % (Auto) 1.0 H Neut % (Auto) 66.6 Lymph % (Auto) 22.9 [place] % (Auto) 7.6 Eos % (Auto) 1.6 Baso % (Auto) 0.3 Lymph # (Auto) 3.47 H [place] # (Auto) 1.2 H Eos # (Auto) 0.2 Baso # (Auto) 0.0 Abs Immat Gran (auto) 0.15 H Absolute Neuts (auto) 10.1 H Absolute Nucleated RBC 0.000 Nucleated RBC % 0.0 POC Capillary Glucose 108 H RPR Non-reactive Hep Bs Antigen Negative HIV 1&2 Ab/P24 Ag 4thGn Negative Rubella IgG Antibody 15.6 Blood Type A Positive Antibody Screen Negative Discharge Plan Discharge Attending physician on discharge: David De Leon Discharging Clinician: David De Leon Patient Disposition: Home, Self-Care Activity: pelvic rest Diet: regular Discharge Instructions: Call or return if temperature above 100.4? F, increased abdominal pain, increased vaginal bleeding or any new problems. Education: Mom and Baby Guide Given to: Mother Follow-Up: Call your delivering provider's office for an appointment to be seen in: 6 Weeks Mom should come to the [facility] for the follow-up appointment. Appointment Date/Time: February 26, 2024 at 1:30 pm What to expect at your follow-up visit: Physical Assessment Call [phone] if you are unable to keep your appointment time. BREAST CARE: * Wear a snug supportive bra. * For engorgement discomfort: Breast Feeding: * Apply warm moist washcloths * Express milk as needed to relieve engorgement * Wear loose clothing Bottle Feeding: * May apply ice packs * For sore nipples: * Identify correct latch-on * Apply warm moist washcloths before and after nursing * Air dry nipples after nursing * May apply Lansinoh cream to nipples EPISIOTOMY/PERINEAL CARE: * Until bleeding stops, use your douglas bottle after urinating * Change your pad frequently throughout the day * You may take sitz baths several times a day (fill your bathtub with warm water and soak for 20 minutes.) Do NOT bathe in the water * No tub baths until seen by your physician - You may shower ACTIVITY: * Rest as much as possible. * Do not exercise or lift anything heavier than your baby (such as laundry or other children.) * Avoid stairs or driving as much as possible. * Do not put anything into the vagina. No douching, tampons, or sexual activity until seen by physician. NOTIFY PHYSICIAN IF YOU HAVE ANY QUESTIONS OR IF ANY OF THE FOLLOWING SYMPTOMS OCCUR: * If your episiotomy/perineum becomes red, swollen, or more painful than what you have experienced in the hospital. * If your vaginal bleeding becomes foul smelling. * If your vaginal bleeding becomes more heavy than a period or if your bleeding changes from pink to bright red. However, you may pass an occasional walnut-sized clot once or twice for the first week . * If you experience a sharp, shooting pain in you calves. * If you discover a hard, reddened area on your breast or if you experience flu-like symptoms. DIET: * Eat regular, well-balanced meals. * Drink plenty of fluids daily. If , drink to thirst. Patient Language: [place] Stand Alone Forms: General Discharge Information Follow-up/Referrals: David De Leon MD [Physician] - 6 Weeks Discharge Medications: New ibuprofen 600 mg tablet 600 mg PO Q6H PRN (Reason: cramps) Qty: 30 0RF Continued prenat.vits,amirah,waq-nevn-yldmw Tablet PO DAILY Date of admission: 02/21/24 02:30 Primary Care Provider: UNKNOWN,DOCTOR Admitting Provider: David De Leon Attending physician on admission: David De Leon Condition: Stable
[2024-02-21] MEDS: OXYTOCIN 30 UNITS/NS 500 ML 30 UNITS/500 ML BAG 125 UNITS IV CONT (09:44)
[2024-02-21 10:19] LABS: Amphetamine Screen Urine Negative (Negative); Barbiturate Screen Urine Negative (Negative); Benzodiazepines Screen Urine Negative (Negative); Cannabinoid Screen Urine Positive (Negative); Cocaine Screen Urine Negative (Negative); Methadone Screen Urine Negative (Negative); Opiate Screen Urine Negative (Negative); Phencyclidine Screen Urine Negative (Negative)
--- NOTE | 2024-02-21 11:55 | OBPPTRN ---
Patient transferred to post room #280 via wheelchair. Support person present. Oriented to unit, room, information board, rooming in, admission packet and security measures. Patient verbalizes understanding.
[2024-02-21] MEDS: IBUPROFEN 600 MG TABLET PO ×2 (12:21→20:56)
[2024-02-21] MEDS: POLYSACCHARIDE IRON COMPLEX 150 MG CAPSULE PO (17:58)
[2024-02-21] MEDS: DOCUSATE SODIUM 100 MG CAPSULE PO (17:58)
[2024-02-22 01:06] VITALS: BP 135/86; PULSE 95; RESP 16; TEMP 36.6; O2SAT 95
--- NOTE | 2024-02-22 04:26 | PC.NURSE ---
Pt was sleeping with baby in the bed with her when I walked in her room. Educated about safe sleep, and placed baby back in bassinet. Mom was easily awoken to voice and touch, but kept falling asleep after coming back into her room from bringing her something very quickly. No support person present this PM. I took baby into the nursery for most of the night.
[2024-02-22] MEDS: IBUPROFEN 600 MG TABLET PO ×2 (05:40→15:02)
[2024-02-22 06:21] LABS: Hematocrit 33.9 % (37.0-47.0); Hemoglobin 10.4 g/dL (12.0-15.0)
[2024-02-22 07:30] VITALS: BP 124/61; PULSE 98; RESP 18; TEMP 36.6; O2SAT 100
--- NOTE | 2024-02-22 08:09 | PC.NURSE ---
Introductions were made, then consulted with patient to assess needs related to . Mother led the conversation with her?plans to feed?her infant and the?experience so far. She intends to breastfeed and supplement infant. Discussed with mother pumping when feedings are missed due to a bottle feed to protect her milk supply, she states understanding and denies needing a pump at this time. Dr. Amezcua updated on history of drug use and states that she can safely continue if she desires. Upon entering room, mother was feeding infant a bottle and states that she will call this RN if she needs help with latching infant for next feeding.
--- NOTE | 2024-02-22 08:27 | PCCCNOTE ---
Care Coordination consult: Received consult for High Risk Substance Abuse Screening. Pt. did test positive upon admission for marijuana. Received calls from pt.'s nurse case management through [employer] [facility] Kenneth Lorenz [phone] who reports pt. has been in services with her since last year when pt.'s 1 year old was taken into DCFS custody upon here in 01/2023. Pt. has a 7 year old and 1 year old who are currently in the custody of Shira grandmother. Pt. has struggled with substances including marijuana and amphetamines. Geoffamina reports that she has already submitted an DCFS report after she learned Shira gave the morning of 02/21/2024. A DCFS perinatal social worker has already been assigned to the case, Vanna Grace, . Per Kenneth, she and Vanna will be at the hospital 11am on 02/22/2024 to meet with pt. Per Kenneth pt. likely already is aware that she will not be able to return home with baby Boy. DCFS will be taking custody upon discharge. Working on placement currently with pt.'s grandmother who already has the 7 year old and 1 year old. Went ahead and submitted DCFS report intake # [id number] with the above information.
--- NOTE | 2024-02-22 11:38 | P.PNOB_ITS ---
OB - PN: Subj Subjective Date/time seen: 02/22/24 11:38 Narrative: Pain OK. Has used IUD in the past and would like one as an outpatient. Would like circumcision for son. OB - PN: Obj Data Labs 02/22/24 05:37 Labs: Laboratory Results - last 24 hr 02/22/24 05:37 Hgb 10.4 L Hct 33.9 L OB - PN A/P Plan Comments: A: PPD#1, doing well. P: Reviewed circ. Routine care. Plan IUD as outpatient. DMPA for now. Reviewed risks, benefits and alternatives in detail. Exam 2 Psych: Other: AVSS ABD soft, nontender, fundus firm EXT nontender
--- NOTE | 2024-02-22 12:03 | PC.NURSE ---
Pt went out to smoke, brought baby to the nurses station.
--- NOTE | 2024-02-22 14:26 | WPDANLDPN2 ---
Anes-Prog Note L&D Date/Time: 02/22/24 14:26 Neuro status: Neuro function grossly intact. Vital Signs: Last Vital Signs Temp 36.6 C 02/22/24 07:30 Pulse 98 02/22/24 07:30 Resp 18 02/22/24 07:30 BP 124/61 02/22/24 07:30 Pulse Ox 100 02/22/24 07:30 O2 Del Method Room Air 02/22/24 07:30 Pain score (VAS): 0 Patient feedback: Patient satisfied with anesthetic care.
[2024-02-22] MEDS: medroxyPROGESTERone ACETATE IM 150 MG/ML SYR IM (17:36)
[2024-02-22] MEDS: ACETAMINOPHEN 325 MG TABLET 650 MG PO (17:42)
[2024-02-22 21:26] VITALS: BP 121/72; PULSE 117; RESP 18; TEMP 36.6; O2SAT 99
[2024-02-23] MEDS: IBUPROFEN 600 MG TABLET PO (02:56)
[2024-02-23] MEDS: ACETAMINOPHEN 325 MG TABLET 650 MG PO (07:28)
[2024-02-23] MEDS: DOCUSATE SODIUM 100 MG CAPSULE PO (07:28)
[2024-02-23 07:35] VITALS: BP 101/63; PULSE 90; RESP 16; TEMP 37.1; O2SAT 99
--- NOTE | 2024-02-23 14:30 | PCCCNOTE ---
Baby is ready for discharge. Spoke with DCFS vessel slag worker Vanna and Pt.'s Garfield Calderon counter caser [employer]ascencion both are aware of discharge for baby boy today. It was determined that Vanna will be at hospital this afternoon with placement (Shira's grandmother) and they will take custody. RN aware. Vanna will bring car seat to hospital. 14:00 DCFS worker Vanna here, copy of badge put in chart. Baby to discharge with DCFS and placement.
== END 2024-02-23 14:00 | disposition home or self-care (01) | DRG 560 ==
LOC: ANHLDR 09:19 → ANHOB2 12:27
PROVIDERS: Admitting Provider Obstetrics & Gynecology; Visit Provider Obstetrics & Gynecology
DX: O99.334 Smoking (tobacco) complicating childbirth (principal); Z37.0 Single live birth; Z3A.37 37 weeks gestation of pregnancy; F17.210 Nicotine dependence, cigarettes, uncomplicated; O99.324 Drug use complicating childbirth; F12.90 Cannabis use, unspecified, uncomplicated
CPT/HCPCS: 36415; 80307; 82948; 85014; 85018; 85025; 86592; 86703; 86762; 86850; 86900; 86901; 87340; A9270; G0432; J1050; J2590; J2795; J7120